=== PATIENT | male | born 1955 | race Caucasian/White ===

== ENCOUNTER 2017-07-01 07:59 | Outpatient (CLI) | payer MEDICARE ==
--- NOTE | 2017-07-01 10:58 | RAD ---
CERVICAL SPINE THREE VIEWS: History: Cervical fusion. Back pain. Comparison: February 2008. FINDINGS: There is cervical fusion hardware at C5, C6, and C7. Transvertebral body screw at C5, C6, and C7 with out perihilar lucency. One, if not two, of the screws at C7 appear to have slightly backed out and ar e not flush against the cervical plate. Disc prosthesis at C5-6 and C6-7. Cervical spine vertebral steve dy height is maintained. No fracture. No prevertebral soft tissue swelling. Predental space is normal. Lateral masses of C1 and C2 articula te appropriately. In the AP projection, degenerative changes of the facets are noted. IMPRESSION: The transvertebral body screws at C7 are not flush with the vertebral body plate. Findings are unchan ged from examination from February 2008. Prior imaging would be beneficial. POS: [facility]
--- NOTE | 2017-07-01 11:15 | RAD ---
LUMBAR SPINE 4 VIEWS: Date: 07/01/17 HISTORY: Chronic back pain for years. COMPARISON: None. FINDINGS: AP, lateral neutral, lateral flexion, and lateral extension views of the lumbar spine demonstrate fiv e lumbar-type vertebral bodies. There appears to be partial sacralization of L5. No fracture. No spon dylolisthesis in the neutral position. No abnormal motion upon extension or flexion. Atherosclerosis of aorta is noted. IMPRESSION: Unremarkable lumbar spine 4 views. POS: [facility]
--- NOTE | 2017-07-01 11:40 | MRI ---
MRI LUMBAR SPINE MRI WITHOUT CONTRAST: History: Chronic back pain x years. Comparison: None. Technique: Lumbar spine MRI is performed without intravenous gadolinium administration. Multisequenti al, multiplanar imaging is performed. FINDINGS: Appropriate T1 marrow signal intensity lumbar vertebrae. Lumbar spine vertebral body height is mainta ined. No fracture. No significant STIR hyperintensity to suggest edema or ligamentous injury. The intrinsic T1 and T2 hyperintensity at L2 and L3 vertebral bodies compatible with osseous hemangio mas. Symmetric signal intensity of the psoas muscles. Mildly prominent gallbladder is noted. There are T2 hyperintensities in the left and right renal cortex likely representing bilateral cortical cysts. Conus medullaris terminates at the superior aspect of L1. T12-L1: Adequate disc hydration. No significant central canal stenosis or neural foraminal narrowing. L1-2: Adequate disc hydration. No significant central canal stenosis or foraminal narrowing. L2-3: Desiccation with mild loss of disc space height. Mild ligamentum flavum thickening and facet hy pertrophy. No significant central canal stenosis. Mild bilateral neural foraminal narrowing. L3-4: Desiccation with mild loss of disc space height. No significant posterior disc abnormality. The re is ligamentum flavum thickening/facet hypertrophy. No significant central canal stenosis. Mild lauro ateral neural foraminal narrowing due to disc material. L4-5: Disc desiccation and mild loss of disc space height. Generalized disc bulge, ligamentum flavum thickening and facet hypertrophy that does not cause any significant stenosis of the thecal sac. Mini mal encroachment upon both subarticular zones without obscuration by the traversing L5 nerve root. Ov erall, there is minimal central canal stenosis. There is a T2 hyperintensity involving the annulus of the disc at the level of the right neural foramen. Small annular tear is noted. The exiting right L4 nerve root is adjacent to the aforementioned annular fissure. There is mild to moderate right neural foraminal narrowing. Mild to moderate left foraminal narrowing. L5-S1: No significant central canal stenosis or foraminal narrowing. IMPRESSION: 1. Degenerative changes of the lumbar spine as above. No high grade central canal stenosis or high gr tristen foraminal narrowing. 2. Annular tear involving the right aspect of the disc, at the level of the L4-5 neural foramen. POS: [facility]
--- NOTE | 2017-07-01 11:46 | MRI ---
CERVICAL SPINE MRI WITHOUT CONTRAST: Date: 07/01/17 HISTORY: Cervical fusion 5 years ago. Chronic neck pain for years. COMPARISON: None. TECHNIQUE: Cervical spine MRI is performed without intravenous Gadolinium administration. Multisequential, multi planar imaging is performed. FINDINGS: Appropriate T1 marrow signal intensity of the cervical vertebra. Cervical spine vertebral body height is maintained. No fracture. There is cervical fusion change at C5, C6, and C7 with associated periha rdware lucency and metallic susceptibility artifact. Visualized brain parenchyma, cervicomedullary ju nction, cervical cord, and the upper thoracic cord have a normal size and signal intensity. C2-C3: No significant disc osteophyte complex. No significant central canal stenosis. Right neural foramen i s patent. Minimal left foraminal narrowing due to degenerative change of the uncovertebral joint. C3-C4: Broad based disc osteophyte complex abuts the thecal sac. No significant central canal stenosis. Dege nerative changes of bilateral uncovertebral joints results in moderate right and moderate to severe l eft foraminal narrowing. C4-C5: No significant disc osteophyte ridge. No significant central canal stenosis. Foramina are patent. C6-C7: Right paracentral osteophyte ridge. Mild central canal stenosis. No T2 hyperintensity of the cord. De generative change in bilateral uncovertebral joints results in moderate right and moderate to severe left foraminal narrowing. C7-T1: No significant disc osteophyte complex. No significant central canal stenosis. Foramina are patent. IMPRESSION: 1. Cervical fusion from C5 through C7. Disc prosthesis at C5-C6 and C7. 2. No significant central canal stenosis or neural foraminal narrowing. POS: [facility]
== END 2017-07-01 08:00 | disposition home or self-care (01) ==
LOC: SCSMRI 07:59
PROVIDERS: ATTEND Neurological Surgery
DX: M47.12 Other spondylosis with myelopathy, cervical region (principal); M48.062 Spinal stenosis, lumbar region with neurogenic claudication; G45.0 Vertebro-basilar artery syndrome; M47.896 Other spondylosis, lumbar region; Z98.1 Arthrodesis status
CPT/HCPCS: 72040; 72120; 72141; 72148

== ENCOUNTER 2017-07-19 13:46 | Outpatient (CLI) | payer MEDICARE ==
--- NOTE | 2017-07-19 16:36 | CT ---
CT OF BRAIN WITHOUT CONTRAST: Indication: 61-year-old male with unsteady gait, concerning for possible tumor. Comparison: No CT or MR of the brain is available for review. FINDINGS: The cortical pedraza white differentiation is normal. Septum pellucidum and third ventricle are midline. No hydrocephalus or intracranial hemorrhage is not ed. No definite mass lesion is demonstrated. The skull and extracranial soft tissues are unremarkable. A small mucous retention cyst is seen within the right sphenoid sinus. IMPRESSION: No acute intracranial abnormality. If there is further clinical concern, MRI of the brain with and wi thout contrast may be helpful. POS: [facility]
== END 2017-07-19 13:47 | disposition home or self-care (01) ==
LOC: TBSIIMAG 13:46
PROVIDERS: ATTEND Neurological Surgery
DX: R26.81 Unsteadiness on feet (principal)
CPT/HCPCS: 70450